=== PATIENT | male | born 1990 | race Caucasian/White ===

== ENCOUNTER 2018-03-11 13:39 | Emergency (ER) | payer SELFPAY ==
[~2018-03-11] VITALS: Ht 172.7 cm; Wt 77.3 kg
[2018-03-11 13:48] VITALS: BP 134/72; Ht 172.7 cm; Wt 77.3 kg
[2018-03-11] MEDS ORDERED: VOLTAREN75 MG PO (15:13)
[2018-03-11] MEDS ORDERED: VIBRAMYCIN 100100 MG PO (15:13)
== END 2018-03-17 07:17 | disposition home or self-care (01) ==
LOC: D.ER 13:39
DX: L03.319 Cellulitis of trunk, unspecified (principal)